=== PATIENT | female | born 2000 | race Caucasian/White ===

== ENCOUNTER 2020-03-26 09:04 | Inpatient (IN) | payer BC, OTHER ==
[2020-03-26] MEDS ORDERED: Promethazine HCl 25 MG/ML VIAL IM PRN (10:24)
[2020-03-26] MEDS ORDERED: Docusate 100 MG CAP PO PRN (10:24)
[2020-03-26] MEDS ORDERED: hydrALAZINE 20 MG/ML VIAL SLOW IVP PRN (10:24)
[2020-03-26] MEDS ORDERED: Ondansetron PF 4 MG/2 ML Vial IVP PRN (10:24)
[2020-03-26] MEDS ORDERED: Zolpidem Tartrate 5 MG TAB PO PRN (10:24)
[2020-03-26 10:36] VITALS: BMI 32.3
--- NOTE | 2020-03-26 10:54 | ULT ---
Biophysical profile: 03/26/2020 COMPARISON: None HISTORY: Cholestasis of TECHNIQUE: Multiplanar grayscale sonographic imaging of the gravid uterus obtained FINDINGS: Single intrauterine gestation present with vertex presentation and heart rate of 127 bpm. P lacenta located anteriorly. Amniotic fluid index is 12.2 cm. [employer] reports a 2 out of 2 score for tone, breathi ng, movement, and amniotic fluid. IMPRESSION: 8 out of 8 biophysical profile score.
[2020-03-26] MEDS ORDERED: Bupivacaine HCl 0.25%/Epi 0.0005/PF 10 ML VIAL FS ONE (11:18)
[2020-03-26] MEDS ORDERED: Sodium Chloride 0.9% (PF) 10 ML VIAL ONE (11:18)
[2020-03-26] MEDS: Betamet Acet/Betamet Na Ph 30 MG/5 ML VIAL IM SCH (11:23)
[2020-03-26] MEDS: Lactated Ringer's 1,000 ML IV SCH ×2 (11:49→20:02)
[2020-03-26] MEDS: Ursodiol 300 MG CAP PO SCH ×2 (12:05→20:59)
[2020-03-26 12:50] LABS: Hemoglobin 11.4 g/dL (12.0-16.0); Mean Corpuscular Hemoglobin 31.4 pg (25.0-35.0); Mean Corpuscular Volume 95.2 fL (78.0-98.0); Platelet Count 157 thou/uL (130-400); RBC Distribution Width 11.2 % (11.5-14.5); Red Blood Cell (RBC) Count 3.65 mill/uL (4.00-5.20); White Blood Cell (WBC) Count 8.3 thou/uL (4.8-10.8)
[2020-03-26 13:00] LABS: ALT (SGPT) 210 U/L (8-55); AST (SGOT) 167 U/L (5-34); Albumin 3.1 g/dL (3.5-5.0); Alkaline Phosphatase 379 U/L (40-100); Anion Gap 15 mmol/L (10-20); BUN (Urea Nitrogen) 12 mg/dL (7.0-18.7); Bilirubin, Total 0.5 mg/dL (0.2-1.2); Calc. Creatinine Clearance 198 mL/min (70-130); Calcium 8.3 mg/dL (7.8-10.44); Carbon Dioxide 21 mmol/L (22-29); Chloride 106 mmol/L (98-107); Globulin 3.3 g/dL (2.4-3.5); Glucose 78 mg/dL (70-105); Potassium 4.2 mmol/L (3.5-5.1); Protein, Total 6.4 g/dL (6.0-8.3); Sodium 138 mmol/L (136-145)
[2020-03-26 13:03] LABS: HBSAg Index 0.12 S/CO (0-0.99); Hep B Surf Ag Non-Reactive S/CO (NonReactive)
[2020-03-26 13:19] LABS: Syphilis Antibody Nonreactive (Nonreactive); Syphilis Antibody Index 0.02 S/CO (<1.00 Non-Reactive)
[2020-03-26 18:07] LABS: SARS-CoV-2 MS2 Positive; SARS-CoV-2 N Gene Negative; SARS-CoV-2 S Gene Negative; SARS-CoV-2 by NAA Not Detected (NotDetected); SARS-CoV-2 orf1ab Negative
[2020-03-26 21:02] LABS: SARS-CoV-2 IgG Ab Non-Reactive (NonReactive)
[2020-03-27] MEDS ORDERED: FLU VACC QS2020-21(6MOS UP)/PF 60 MCG/0.5 ML SYRINGE IM ONE (09:00)
[2020-03-27] MEDS: Ursodiol 300 MG CAP PO SCH ×3 (10:16→19:04)
[2020-03-27] MEDS: Betamet Acet/Betamet Na Ph 30 MG/5 ML VIAL IM SCH (11:30)
[2020-03-27] MEDS ORDERED: Betamet Acet/Betamet Na Ph 30 MG/5 ML VIAL ONE (17:48)
[2020-03-27] MEDS: Lactated Ringer's 1,000 ML IV SCH (18:09)
[2020-03-27] MEDS ORDERED: Diphenoxylate HCl/Atropine Tablet PO PRN ×2 (19:52)
[2020-03-27] MEDS ORDERED: Lidocaine 1% (PF) 30 ML VIAL SC PRN (19:52)
[2020-03-27] MEDS ORDERED: Methylergonovine 0.2 MG/ML VIAL IM PRN (19:52)
[2020-03-27] MEDS ORDERED: Misoprostol 200 MCG TAB PR PRN (19:52)
[2020-03-27] MEDS ORDERED: HYDROcodone/Acetaminophen 5/325 mg Tablet PO PRN ×2 (19:52)
[2020-03-27] MEDS ORDERED: NS / Oxytocin 40 units/1000ml 1,000 ML IV PRN (19:52)
[2020-03-27] MEDS ORDERED: Carboprost 250 MCG/ML AMP IM PRN (19:52)
--- NOTE | 2020-03-27 19:57 | PDOC.LDHP ---
Labor and Delivery H&P HPI: 20 y/o at 35 and 5/6 weeks presents from home, called in for ICP with Bile Acid elevation to 98 (very high). Will admit for BMZ course, and induction of labor at 36 weeks if fetus tolerates labor. Current gestational age (weeks): 35 Due date: 04/24/19 Grav: 1 Para: 0 Current complications: other (ICP) Abnormal US findings: No Current medications: pre-chau vitamins Allergies/Adverse Reactions: Allergies Allergy/AdvReac Type Severity Reaction Status Date / Time No Known Allergies Allergy Unverified 03/26/20 10:37 Social history: none - Physical Exam Vital signs reviewed and normal: yes General: NAD Heart: RRR Lungs: CTAB Abdomen: gravid Extremeties: no edema FHT: category 1 - Plan Plan: admit to L&D
[2020-03-27] MEDS ORDERED: Hydrocerin (Eucerin) Cream 120 gm Jar TOP PRN (20:00)
--- NOTE | 2020-03-27 20:00 | PDOC.LDPN ---
Labor & Delivery Progress Note - Objective Vital signs reviewed and normal: yes General: NAD, resting Uterine fundus: non tender SVE: 1 Station: -3 FHT: category 1 (BMZ 2nd dose given earlier today. GBS negative. Will proceed with Cytotec induction later this evening. LFTs elevated on initial blood work.)
[2020-03-27] MEDS ORDERED: diphenhydrAMINE 30 GM TUBE TOP PRN (20:02)
[2020-03-27] MEDS: Misoprostol 100 MCG TAB VAG SCH (21:21)
[2020-03-28] MEDS: Misoprostol 100 MCG TAB VAG SCH ×7 (00:35→19:09)
[2020-03-28] MEDS: Lactated Ringer's 1,000 ML IV SCH ×3 (07:31→22:02)
[2020-03-28] MEDS: Ursodiol 300 MG CAP PO SCH ×3 (08:16→17:39)
--- NOTE | 2020-03-28 19:58 | PDOC.LDPN ---
Labor & Delivery Progress Note - Objective Vital signs reviewed and normal: yes General: NAD, resting, breathing through contractions Uterine fundus: non tender Dilation: 1 FHT: category 1 Plan: continue plan of care
[2020-03-28] MEDS ORDERED: Promethazine HCl 25 MG/ML VIAL IM PRN ×2 (20:18→22:02)
[2020-03-28] MEDS ORDERED: hydrALAZINE 20 MG/ML VIAL SLOW IVP PRN (20:18)
[2020-03-28] MEDS ORDERED: Butorphanol Tartrate 1 MG/ML VIAL SLOW IVP PRN (20:18)
[2020-03-28] MEDS ORDERED: Acetaminophen 500 MG TAB PO PRN (20:18)
[2020-03-28] MEDS ORDERED: Ondansetron PF 4 MG/2 ML Vial IVP PRN ×2 (20:18→22:02)
[2020-03-28] MEDS ORDERED: Butorphanol Tartrate 1 MG/ML VIAL ONE (20:20)
[2020-03-28] MEDS ORDERED: Fentanyl 4 mcg/Bup 0.1% Cadd 100 ML ONE (21:08)
[2020-03-28] MEDS ORDERED: ePHEDrine 50 MG/ML VIAL SLOW IVP PRN (22:02)
[2020-03-28] MEDS ORDERED: Acetaminophen 325 MG TAB PO PRN (22:02)
[2020-03-28] MEDS ORDERED: Lactated Ringer's 500 ML IV PRN (22:02)
[2020-03-28] MEDS ORDERED: diphenhydrAMINE 50 MG/ML VIAL IVP PRN (22:02)
[2020-03-28] MEDS ORDERED: Naloxone HCl 0.4 mg/ml Vial IVP PRN ×2 (22:02)
[2020-03-28] MEDS ORDERED: Communication Order-Pharmacy FS SCH (22:15)
[2020-03-28] MEDS ORDERED: Fentanyl 4 mcg/Bupivacaine 0.1% Cassette 100 ML EPIDURAL SCH (22:15)
[2020-03-29] MEDS: Misoprostol 100 MCG TAB VAG SCH ×2 (01:14→03:28)
[2020-03-29] MEDS ORDERED: NS w/ Oxytocin 30 units 500 ML ONE (01:46)
[2020-03-29] MEDS: Lactated Ringer's 1,000 ML IV SCH (03:28)
[2020-03-29] MEDS ORDERED: hydrALAZINE 20 MG/ML VIAL SLOW IVP PRN (03:29)
[2020-03-29] MEDS ORDERED: Milk Of Magnesia 30 ML UDCUP PO PRN (03:29)
[2020-03-29] MEDS ORDERED: Ondansetron PF 4 MG/2 ML Vial IVP PRN (03:29)
[2020-03-29] MEDS ORDERED: Promethazine HCl 25 MG/ML VIAL IM PRN (03:29)
[2020-03-29] MEDS ORDERED: Preparation H Ointment 28 GM TUBE PR PRN (03:29)
[2020-03-29] MEDS ORDERED: Measles/Mumps/Rubella 10 MCG/0.5 ML VIAL SC ONE (03:29)
[2020-03-29] MEDS ORDERED: Bisacodyl 10 MG SUPP PR PRN (03:29)
[2020-03-29] MEDS ORDERED: Lanolin Ointment 7 GM TUBE TOP PRN (03:29)
[2020-03-29] MEDS ORDERED: Adacel (T-DAP) 0.5 ML SYRINGE IM ONE (03:29)
[2020-03-29] MEDS ORDERED: Misoprostol 200 MCG TAB VAG PRN (03:29)
[2020-03-29] MEDS ORDERED: NS / Oxytocin 40 units/1000ml 1,000 ML IV SCH (03:29)
[2020-03-29] MEDS ORDERED: Benzocaine-Menthol 82.5 ML CAN TOP PRN (03:29)
[2020-03-29] MEDS ORDERED: Varicella virus, LIVE 0.5 ML VIAL SC ONE (03:29)
[2020-03-29] MEDS ORDERED: diphenhydrAMINE 25 MG CAP PO PRN (03:29)
[2020-03-29] MEDS ORDERED: Zolpidem Tartrate 5 MG TAB PO PRN (03:29)
[2020-03-29] MEDS ORDERED: HYDROcodone/Acetaminophen 5/325 mg Tablet PO PRN ×2 (03:29)
[2020-03-29] MEDS ORDERED: NS w/ Oxytocin 30 units 500 ML IV SCH (04:00)
[2020-03-29 05:53] LABS: Hemoglobin 11.6 g/dL (12.0-16.0); Mean Corpuscular HGB CONC 31.6 g/dL (32.0-36.0); Mean Corpuscular Volume 95.2 fL (78.0-98.0); Mean Platelet Volume 12.4 fL (7.4-10.4); Platelet Count 147 thou/uL (130-400); RBC Distribution Width 11.6 % (11.5-14.5); Red Blood Cell (RBC) Count 3.87 mill/uL (4.00-5.20); White Blood Cell (WBC) Count 16.7 thou/uL (4.8-10.8)
[2020-03-29] MEDS: Ibuprofen 800 MG TAB PO SCH ×2 (08:21→18:19)
[2020-03-29] MEDS: Ferrous Sulfate 325 MG TAB PO SCH ×2 (09:19→17:14)
[2020-03-29] MEDS: Ursodiol 300 MG CAP PO SCH ×3 (09:40→18:20)
[2020-03-29] MEDS: Docusate Calcium (SURFAK) 240 MG CAP PO SCH (09:40)
[2020-03-29] MEDS: Prenatal Vitamin 1 TAB PO SCH (09:40)
[2020-03-30] MEDS: Ibuprofen 800 MG TAB PO SCH ×4 (01:57→21:46)
[2020-03-30] MEDS: Docusate Calcium (SURFAK) 240 MG CAP PO SCH ×3 (02:05→21:47)
[2020-03-30] MEDS ORDERED: FLU VACC QS2020-21(6MOS UP)/PF 60 MCG/0.5 ML SYRINGE IM ONE (09:30)
[2020-03-30] MEDS: Prenatal Vitamin 1 TAB PO SCH (09:46)
[2020-03-30] MEDS: Ferrous Sulfate 325 MG TAB PO SCH ×2 (09:47→17:23)
[2020-03-30] MEDS: Ursodiol 300 MG CAP PO SCH ×3 (09:47→18:53)
--- NOTE | 2020-03-30 14:30 | PDOC.PP ---
Post Progress Note Post Day #: 1 PO intake tolerated: yes Flatus: yes Ambulation: yes Vital Signs (12 hours) Temp Pulse Resp BP Pulse Ox 03/30/20 12:00 97.5 F L 57 L 20 123/78 03/30/20 08:05 97.9 F 65 16 131/84 99 Weight Weight 194 lb - Physical Examination General: NAD Cardiovascular: no m/r/g, RRR Respiratory: clear to auscultation bilaterally, non-labored breathing Abdominal: + bowel sounds, lochia, no distention, appropriately TTP Extremities: negative homans (B) Neurological: no gross focal deficits (DC to home planned) Result Diagrams: 03/29/20 05:19 03/26/20 11:55 Additional Labs: Post Labs Hep Bs Antigen Non-Reactive S/CO (NonReactive) 03/26/20 11:55 Blood Type O POSITIVE 03/26/20 12:35
--- NOTE | 2020-03-30 14:47 | DN ---
DATE OF PROCEDURE: 03/29/2020 TIME: 0226 Central Standard Time. PREOPERATIVE DIAGNOSIS: Intrauterine at 36 weeks and 2 days, status post betamethasone 48-hour course with a diagnosis of severe intrahepatic cholestasis of . POSTOPERATIVE DIAGNOSIS: Intrauterine at 36 weeks and 2 days, status post betamethasone 48-hour course with a diagnosis of severe intrahepatic cholestasis of . PROCEDURES PERFORMED: Spontaneous vaginal delivery over first-degree laceration of the perineum. FINDINGS: Viable male infant weighing 3029 g or 6 pounds 11 ounces. Apgars 9 and 9. COMPLICATIONS: None. PROCEDURE IN DETAIL: The patient presented to [facility] where she was admitted to the labor and delivery service. The patient underwent a normal and uneventful labor with normal cervical dilatation until she was found to be completely dilated. She was then allowed to push and was able to bring the baby down and delivered the baby in a vertex presentation without difficulties. Once the head delivered in occiput anterior position, the shoulders followed spontaneously along with the rest of the baby's body. Once out the baby's mouth and nose were bulb suctioned. The cord was clamped and cut and baby was handed to waiting attendants. Cord blood was collected. Gentle fundal massage was performed and the placenta delivered intact without problems. Hemostasis was assured. Quantitative blood loss was calculated. Inspection of the cervix, vaginal vault, and perineum did not reveal any lacerations needing suturing. Once again, hemostasis was within normal limits and the patient was allowed to recover in the labor and delivery room. Baby went to nursery. Job ID: [id number]
[2020-03-30 17:44] LABS: ALT (SGPT) 115 U/L (8-55); AST (SGOT) 40 U/L (5-34); Albumin 3.1 g/dL (3.5-5.0); Alkaline Phosphatase 279 U/L (40-100); Anion Gap 15 mmol/L (10-20); BUN (Urea Nitrogen) 11 mg/dL (7.0-18.7); Bilirubin, Total 0.3 mg/dL (0.2-1.2); Calc. Creatinine Clearance 183 mL/min (70-130); Calcium 9.2 mg/dL (7.8-10.44); Carbon Dioxide 22 mmol/L (22-29); Chloride 105 mmol/L (98-107); Globulin 3.9 g/dL (2.4-3.5); Glucose 92 mg/dL (70-105); Potassium 4.3 mmol/L (3.5-5.1); Sodium 138 mmol/L (136-145)
[2020-03-31] MEDS: Ibuprofen 800 MG TAB PO SCH (05:17)
[2020-03-31] MEDS: Ferrous Sulfate 325 MG TAB PO SCH (07:46)
[2020-03-31] MEDS: Prenatal Vitamin 1 TAB PO SCH (09:16)
[2020-03-31] MEDS: Ursodiol 300 MG CAP PO SCH (09:16)
[2020-03-31] MEDS: Docusate Calcium (SURFAK) 240 MG CAP PO SCH (09:16)
[2020-03-31 09:25] VITALS: BP 137/86; TEMP 98.7
== END 2020-03-31 11:55 | disposition home or self-care (01) | DRG 805 ==
LOC: L&D-LIB 09:04 → L&D 03-27 20:14 → 3SW 03-29 05:42
PROVIDERS: ADMIT Obstetrics & Gynecology; ATTEND Obstetrics & Gynecology
PROC: 3E0P7VZ Introduction of Hormone into Female Reproductive, Via Natural or Artificial Opening (ICD-10-PCS; 2020-03-27)
PROC: 10E0XZZ Delivery of Products of Conception, External Approach (ICD-10-PCS; principal; 2020-03-29)
DX: O26.62 Liver and biliary tract disorders in childbirth (principal); K83.1 Obstruction of bile duct; Z37.0 Single live birth; Z3A.36 36 weeks gestation of pregnancy; Z23 Encounter for immunization; Z20.822 Contact with and (suspected) exposure to COVID-19
CPT/HCPCS: 36415; 51702; 76819; 80053; 82239; 85027; 86769; 86780; 86850; 86900; 86901; 87340; 87635; 90715; J0595; J0702; J2590; U0003

== ENCOUNTER 2020-04-01 14:41 | Emergency (ER) | payer BC, OTHER ==
[2020-04-01 15:34] LABS: Mean Corpuscular HGB CONC 32.5 g/dL (32.0-36.0); Mean Corpuscular Hemoglobin 31.2 pg (25.0-35.0); Mean Corpuscular Volume 96.2 fL (78.0-98.0); Mean Platelet Volume 10.3 fL (7.4-10.4); Platelet Count 209 thou/uL (130-400); Red Blood Cell (RBC) Count 3.84 mill/uL (4.00-5.20); White Blood Cell (WBC) Count 13.3 thou/uL (4.8-10.8)
--- NOTE | 2020-04-01 15:51 | ULT ---
Venous duplex sonogram right lower extremity HISTORY: Right leg pain and edema. FINDINGS: The right common femoral vein and greater saphenous junction were evaluated along with the femoral, deep femoral, popliteal, and posterior tibial vein. There is good color and spectral Doppler flow, compression, and augmentation. IMPRESSION : Normal exam.
[2020-04-01 15:53] LABS: ALT (SGPT) 57 U/L (8-55); AST (SGOT) 18 U/L (5-34); Albumin 3.3 g/dL (3.5-5.0); Alkaline Phosphatase 250 U/L (40-100); Anion Gap 16 mmol/L (10-20); BUN (Urea Nitrogen) 8 mg/dL (7.0-18.7); Bilirubin, Total 0.3 mg/dL (0.2-1.2); Calc. Creatinine Clearance 0 mL/min (70-130); Calcium 8.9 mg/dL (7.8-10.44); Carbon Dioxide 20 mmol/L (22-29); Chloride 110 mmol/L (98-107); Globulin 3.7 g/dL (2.4-3.5); Glucose 74 mg/dL (70-105); Sodium 142 mmol/L (136-145)
[2020-04-01 15:58] LABS: Band 5 % (5-11); Lymphocytes 11 % (28-48); MDiff Complete? YES; Monocytes 5 % (0-4); Neutrophil 76 % (31-61); Platelet Morphology Comment Appears Adequate; Polychromasia SLIGHT = 2-3 cells (100X) (0-2/hpf); Reactive Lymphocytes 3 % (0-10)
[2020-04-01 16:04] LABS: Bacteria/HPF None Seen HPF (None Seen); Bilirubin Negative (Negative); Blood, Urine 3+ (Negative); Clarity Turbid (Clear); Glucose, Urine (Dipstick) Normal (Negative); Ketone, Urine Negative (Negative); Leukocyte 500 Leu/uL (Negative); Nitrite Negative (Negative); Protein, Urine (Dipstick) 20 mg/dL (Neg-Trace); RBC/HPF Greater than 50 HPF (0-3); Urobilinogen Normal mg/dL (Less than 2); WBC/HPF Greater than 50 HPF (0-3); pH, Urine 7.5 (5.0-9.0)
[2020-04-01 17:17] LABS: Bilirubin Negative (Negative); Blood, Urine Negative (Negative); Clarity Clear (Clear); Glucose, Urine (Dipstick) Normal (Negative); Ketone, Urine Negative (Negative); Leukocyte Negative Leu/uL (Negative); Nitrite Negative (Negative); Protein, Urine (Dipstick) Negative (Neg-Trace); Specific Gravity, Urine 1.013 (1.002-1.036); Urobilinogen Normal mg/dL (Less than 2)
--- NOTE | 2020-04-01 17:58 | ULT ---
Exam: Pelvic ultrasound HISTORY: Passing blood clots 4 days post vaginal delivery. COMPARISON: None TECHNIQUE: Multiple grayscale and color Doppler images were obtained in a transabdominal and transvag inal pelvic ultrasound. Spectral analysis of the Doppler waveforms of the ovaries were performed. FINDINGS: CERVIX: Not well assessed. UTERUS: Enlarged measuring 17.2 cm x 7.4 cm x 12.1 cm likely due to state of the uterus. ENDOMETRIAL STRIPE: Endometrial stripe is thickened with heterogeneous material in the endometrium. E ndometrial thickness is 2.7 cm. Heterogeneity in the endometrium is likely related to hemorrhage. Retained products of conception is a possibility, but no flow is seen within the area of heterogeneit y in the endometrial canal. No free fluid is present. RIGHT OVARY: Normal flow, without focal mass. LEFT OVARY: Normal flow, without focal mass. IMPRESSION: uterus with thickened heterogeneous endometrium. Heterogeneity in the endometrium is likel y related to hemorrhage. Associated retained products of conception is a possibility, but there is no flow seen in the region of heterogeneity.
== END 2020-04-01 18:13 | disposition home or self-care (01) ==
LOC: ERS 14:41
DX: O72.1 Other immediate postpartum hemorrhage (principal); O99.893 Other specified diseases and conditions complicating puerperium; R60.0 Localized edema
CPT/HCPCS: 36415; 51701; 76856; 80053; 81003; 81015; 85025; 85379